=== PATIENT | female | born 1975 | race Caucasian/White ===

== ENCOUNTER → 2017-10-28 07:30 | Outpatient (CLI) | payer OTHER, SELFPAY ==
--- NOTE | 2017-10-28 07:30 | LES_PTH ---
PATIENT: DAVE VALVERDE LOC: [facility] U#:[id number] AGE/SX: 49/F ROOM: RE10/28/[address]: Dr. Damian Barraza MD : 1975 BED: DIS: SPEC #: [id number] RECD: 10/30/17 07:20 STATUS: SANDOR LEA #: [id number] MARYURI: 10/28/17 07:[address]: Damian Barraza DEPT: SURGICAL PATHOLOGY RECD BY: Yash Hong Tissues: Thigh, NOS Procedures: Surgery Specimen Level III HEADER OPERATION: Excision left thigh mass PRE-OP DIAGNOSIS: Left thigh mass/nodule TISSUE SUBMITTED: Left thigh tissue MICROSCOPIC DIAGNOSIS Left thigh mass, biopsy: Angiolipoma. SHOAIB:farhat 10/31/17 MICROSCOPIC DESCRIPTION Slides are reviewed. GROSS DESCRIPTION Received in fixative is one container labeled with the patient's name and designated left thigh. The specimen consists of multiple irregular fragments of yellow adipose tissue that in aggregate measure 2.5 x 2.5 x 0.5 cm. The largest piece is bisected. The entire specimen is submitted in one cassette. / SJ:rg 10/30/17 TC:1 CPT: 11577
== END ==
PROVIDERS: Visit Provider Surgery
DX: D17.24 Benign lipomatous neoplasm of skin and subcutaneous tissue of left leg (principal)
CPT/HCPCS: 88304; 88305

== ENCOUNTER → 2020-07-17 09:30 | Outpatient (CLI) | payer OTHER, SELFPAY ==
--- NOTE | 2020-07-17 09:33 | MRI_ITS ---
STUDY: MRI BRAIN WITH AND WITHOUT CONTRAST REASON FOR EXAM: Female, 44 years old. PAPILLEDEMA, R EYE PRESSURE, VISION LOSS X 2 WEEKS TECHNIQUE: Standardized multiplanar fat and water weighted pulse sequences were obtained. IV 20 CC DOTAREM was administered for the contrast portion of the examination. COMPARISON: None. FINDINGS: Normal size of the ventricles and extra-axial spaces for the patient''s age. Normal white matter tracts of the supratentorial brain. There is no evidence for recent intracranial ischemia or other cause of cytotoxic edema on diffusion weighted imaging (DWI). Normal T2* images of the brain without demonstrated susceptibility artifact. There is no demonstrated hemosiderin stain. Normal bilateral basal ganglia. Normal thalami. There is no extra-axial fluid accumulation. Normal flow voids within the major intracranial circulation suggesting patency by spin echo criteria. Normal venous enhancement. There is no enhancing intra-axial or extra-axial abnormality. Normal sella turcica, pituitary gland, infundibular stalk, optic chiasm and hypothalamus. Normal tectal plate and pineal gland. Normal midbrain, lucian and medulla. Normal cerebellum. Normal basal cisterns. Normal bilateral temporal bones. Normal bilateral internal auditory canals. Subtle flattening the posterior sclera of the globe bilaterally with the dilated fluid-filled optic nerve sheaths worrisome for idiopathic intracranial hypertension (pseudotumor cerebri). Normal visualized paranasal sinuses. Normal calvarium and skull base. Normal visualized soft tissue structures. Normal visualized upper cervical spine. MRI/Brain W/WO Contrast IMPRESSION: Suspect idiopathic intracranial hypertension (pseudotumor cerebri). Correlation with funduscopic exam may be useful. Electronically Signed: Eddie Trotter MD at 12:11 EDT Tel , Service support ,
== END ==
PROVIDERS: Referring Provider Ophthalmology; Visit Provider Ophthalmology
DX: H47.10 Unspecified papilledema (principal)
CPT/HCPCS: 70553; A9575